=== PATIENT | male | born 1995 | race Caucasian/White ===

== ENCOUNTER 2017-01-07 21:12 | Emergency (ER) | payer SELFPAY | END 2017-01-07 23:22 | disposition home or self-care (01) | LOC: D.ER 21:12 | DX: S06.0X9A Concussion with loss of consciousness of unspecified duration, initial encounter (principal); V49.9XXA Car occupant (driver) (passenger) injured in unspecified traffic accident, initial encounter; Y93.89 Activity, other specified; Y92.410 Unspecified street and highway as the place of occurrence of the external cause; T14.8 Other injury of unspecified body region; S20.219A Contusion of unspecified front wall of thorax, initial encounter ==